=== PATIENT | female | born 1965 | race Caucasian/White ===

== ENCOUNTER 2017-07-21 11:29 | Day surgery (SDC) | payer OTHER ==
[~2017-07-21] VITALS: Ht 162.6 cm; Wt 62.0 kg
[2017-07-21 12:03] VITALS: Ht 162.6 cm; Wt 62.0 kg
[2017-07-21] MEDS ORDERED: PROVASTATIN (12:10)
[2017-07-21] MEDS ORDERED: CITRAZINE (12:10)
[2017-07-21] MEDS ORDERED: LEVO50TA71 PO (12:10)
--- NOTE | 2017-07-21 14:03 | OPPN ---
Date/Time of Note Date/Time of Note DATE: 07/21/17 TIME: 14:01 Operative Report Preoperative Diagnosis Screening Postoperative Diagnosis Internal hemorrhoid Operation/Procedure Performed Colonoscopy Provider: JODIE DAUGHERTY MD Anesthesia Type: moderate sedation Estimated blood loss: none Transfusion Required: no Specimen: none Grafts/Implants: none Complications: no JODIE DAUGHERTY MD Jul 21, 2017 14:03
[2017-07-21] MEDS ORDERED: MIDAZOLAM 1 MG/ML 2 ML INJ ONE ×2 (14:08)
[2017-07-21] MEDS ORDERED: FENTAnyl 50 MCG/ML VIAL ONE (14:08)
[2017-07-21 14:25] VITALS: BP 108/58; RESP 14
--- NOTE | 2017-07-21 16:16 | GILP ---
DATE OF PROCEDURE: 07/21/2017 NAME OF THE PROCEDURE: Colonoscopy. SURGEON: Bentley Manzo MD PREOPERATIVE DIAGNOSIS: Screening colonoscopy. POSTOPERATIVE DIAGNOSES: 1. Colonoscopy all the way to the cecum. 2. Internal hemorrhoids. 3. No colon neoplasm was identified. INDICATIONS FOR PROCEDURE: Ms. Merari Hammer is a 51-year- old female patient who [facility]. The procedure and possible complications were well explained to the patient. She understood and consented to the procedure. DESCRIPTION OF PROCEDURE: Under the influence of fentanyl and Versed, the colonoscope was carefully introduced into the rectum, and under direct vision it was advanced all the way to the cecum. FINDINGS: The patient had internal hemorrhoids. No colon neoplasm was identified. She tolerated the procedure very well. There was no complication from the procedure. At the end of procedure, she was awake with stable vital signs, and she was discharged home in care of her family. IMPRESSION: Please see postoperative diagnoses. PLAN: Next screening colonoscopy in 10 years. Dictated By: MD CAROL Oconnell/michaelle/noble /Document#: [id number]
== END 2017-07-21 15:22 | disposition home or self-care (01) ==
LOC: GIL 11:29
PROVIDERS: ATTEND Internal Medicine Gastroenterology
DX: Z12.11 Encounter for screening for malignant neoplasm of colon (principal); K64.8 Other hemorrhoids
CPT/HCPCS: 45378; 84703; J2250; J3010; Z7610